=== PATIENT | male | born 1955 | race Caucasian/White ===

== ENCOUNTER → 2017-12-23 11:05 | Outpatient (CLI) | payer MEDICAID, SELFPAY ==
--- NOTE | 2017-12-23 11:07 | VDLE_ITS ---
Reason For Study: LEG SWELLING RIGHT LEFT CFV is compressible, spontaneous, phasic, CFV is compressible, spontaneous, phasic, competent and demonstrates normal competent, and demonstrates normal augmentation. augmentation. FV is compressible, spontaneous, phasic, FV is compressible, spontaneous, phasic, competent and demonstrates normal competent and demonstrates normal augmentation. augmentation. POP V is compressible, spontaneous, phasic, POP V is compressible, spontaneous, phasic, competent and demonstrates normal competent and demonstrates normal augmentation. augmentation. T/P Trunk is compressible. T/P Trunk is compressible. PTV is compressible. PTV is compressible. RT PerV is compressible. LT PerV is compressible. SFJ is competent SFJ is competent GSV is INCOMPETENT with reflux greater GSV is INCOMPETENT with reflux greater than .5 sec and diameter of.69 x .66 cm than .5 sec and diameter of .62 x .38 cm ASV is INCOMPETENT with reflux greater SSV is competent than .5 sec and diameter of .32 x .31 cm SSV is INCOMPETENT with reflux greater Incidental finding of dilated POP V than .5 sec and diameter of .26 x .28 cm measuring 1.8 x 1.7 x 1.7 cm INCOMPETENT trial mgr 13 cm prox to medial Slow, sluggish flow noted LLE malleolus with reflux greater than .5 sec. Thrombus filled varicose veins noted LT Procedure medial thigh/calf. Exam performed in department. Interpretation Summary 1. Bilateral no DVT 2. Right GSV reflux 7mm 3. Right ASV reflux 3mm. 4. Right LSv relfux 3mm 5. Left GSv reflux 6mm 6. Left popliteal vein dialted 18mm. Ordering Physician: Gabriel Clarke Referring Physician: Gabriel Clarke Performed By: Sarita Bahena RVT
== END ==
PROVIDERS: Visit Provider Surgery Vascular Surgery
DX: M79.89 Other specified soft tissue disorders (principal); I83.893 Varicose veins of bilateral lower extremities with other complications; M79.609 Pain in unspecified limb
CPT/HCPCS: 93970

== ENCOUNTER 2019-08-11 15:10 | Emergency (ER) | payer MEDICAID, SELFPAY ==
[2019-08-11 15:10] VITALS: BP 134/97; PULSE 89; RESP 16; TEMP 37.1; O2SAT 95; BMI 29.5
--- NOTE | 2019-08-11 15:36 | VDLE_ITS ---
Reason For Study: Left leg swelling Procedure LEFT Exam performed in department. GSV is normal. A preliminary report was called and/or faxed CFV is compressible, spontaneous, phasic, to Bruno. competent, and demonstrates normal augmentation. FV is compressible, spontaneous, phasic, competent and demonstrates normal augmentation. POP V is compressible, spontaneous, phasic, competent and demonstrates normal augmentation. T/P Trunk is compressible. PTV is compressible. LT PerV is compressible. Structure noted in the popliteal fossa measuring approximently 0.61 x 2.23 x 4.60 cm Roulex flow noted throughout LLE. Varicose veins in the distal medial thigh have bright intraluminal echoes consistent with chronic clot. Interpretation Summary There is no evidence of left lower extremity deep vein thrombosis. Chronic superficial thrombophlebitis varicose veins left distal medial thigh 0.61 x 2.23 x 4.6 cm Corera's cyst left popliteal fossa Sluggish venous flow noted throughout the left lower extremity--clinical correlation would be appropriate Ordering Physician: Tapan Carr Performed By: Sara Troy RVT
--- NOTE | 2019-08-11 15:39 | ED.DCSUM_ITS ---
- ER Visit Summary Date of Service: 08/11/19 Chief Complaint: Left lower leg and knee swelling. History of Present Illness: The patient is a 64 M varicose veins and chronic left knee swelling from prior patella fracture with orthopedic repair and arthritis. States that he states the last several weeks or 2 months plus he has had chronic swelling of his left knee and left lower leg. He has a very pleasant 82. He is never had a DVT or PE. He has had superficial phlebitis in the past. Several months ago which did improve his knee but now is seeing orthopedic physician. Physical Examination: Older male no acute distress vital signs stable afebrile. HEENT exam unremarkable. Lungs clear to auscultation. Heart regular rhythm no murmur. Abdomen soft nontender. Normal bowel sounds no peritoneal signs. Extremities moves all 4. Neurovascular intact. Left knee has no effusion. A well-healed midline incision from the past. He is able to flex and extend his left knee he has limited flexion due to swelling. Very limited to no pain. No signs of septic joint. It is not red there is no cellulitis. He also has extensive varicose veins of his left lower leg and medial thigh. There is mild swelling of his left lower leg. No calf tenderness or cords. Left foot is ne urovascular intact with a strong DP pulse. 5 out of 5 motor strength and normal sensation. Right lower extremity also has varicose veins. But there is no swelling in the right knee. Otherwise exam unremarkable. Test Results: Noninvasive study left lower extremity shows no DVT. Per the audio visual technician there appears to be a left popliteal Correa's cyst. Emergency Department Course and Treatment: Patient is knee is acute on chronic effusion. He does not want an injected at this time. Is not infected. He is already under the care of an orthopedic physician in the diet and he will follow-up with him and has a pending MRI. Discussed with patient test results. Repeat exam no change. Treatment Plan: Ice and elevate left knee. Follow-up with his orthopedic doctor in his MRI. Disposition: Discharge Impression: Left lower extremity swelling secondary varicose veins Acute on chronic left knee swelling secondary to effusion secondary to arthritis to the knee and prior patella fracture. This note was generated with [employer] software. It may contain incorrect words, spelling, and punctuation that were not noted in review of the chart prior to signing ED Disposition - Plan for ED Patient: Referrals: Care Physician,No Primary [Primary Care Provider] -
--- NOTE | 2019-08-11 16:34 | ED.DEP ---
ED Disposition - Plan for ED Patient: Disposition: Home or Assisted Living Additional Instructions: Ice and elevate your left knee. Motrin for pain and swelling. The swelling is caused by both your varicose veins and the chronic swelling in your left knee. You also appear to have what is called a Correa's cyst behind her left knee secondary to chronic and arthritic changes.
[2019-08-11 16:37] VITALS: BP 128/70; PULSE 80; RESP 14; O2SAT 98
== END 2019-08-11 16:48 | disposition home or self-care (01) ==
PROVIDERS: Emergency Provider Emergency Medicine
DX: M25.461 Effusion, right knee (principal); M17.12 Unilateral primary osteoarthritis, left knee; I83.892 Varicose veins of left lower extremity with other complications; Z87.81 Personal history of (healed) traumatic fracture
CPT/HCPCS: 93971; 99282